=== PATIENT | female | born 2000 | race African-American/Black ===

== ENCOUNTER 2020-08-14 09:38 | Emergency (ER) | payer BC ==
[~2020-08-14] VITALS: Ht 167.6 cm; Wt 117.9 kg
--- NOTE | 2020-08-14 10:31 | Emergency Department Note ---
History of Present Illnes History of Present Illness Chief Complaint: Respiratory History of Present Illness This is a 20 year old female .Chief Complaint Comment PATIENT IN FROM HOME WITH COMPLAINTS OF COUGH AND CONGESTION X 2 DAYS; RUNNY NOSE AND CONGESTION NOTED IN TRIAGE. PATIENT APPEARS IN NO DISTRESS, AFEBRILE, O2 SATS 100% ON ROOM AIR, ALERT AND ORIENTED, RESP EVEN AND NONLABORED Historian: Patient Arrival Mode: Car Onset (how long ago): day(s) (2) Location: COUGH Quality: DULL Radiation: Reports non-radiation, Reports back, Reports neck, Reports extremity, Reports abdomen, Reports periumbilical, Reports flank, Reports proximal, Reports distal, Reports other Severity: mild Onset quality: gradual Duration (how long): day(s) (2) Timing of current episode: intermittent Progression: waxing and waning Chronicity: new Context: Denies recent illness, Denies recent surgery, Denies recent immobil ization, Denies recent travel, Denies trauma/injury, Denies new medications, Denies hx of DVT/PE, Denies non-compliance w/ medications, Denies other Relieving factors: none Exacerbating factors: none Associated symptoms: Reports cough Treatments prior to arrival: none Past Medical/Family History Physician Review I have reviewed the patient's past medical and family history. Any updates have been documented here. Past Medical History Recent Fever: No Clinical Suspicion of Infectio: No New/Unexplained Change in Ment: No Past Medical History: Depression Other Medical History: ADHD Depression Past Surgical History: None Social History Smoking Cessation: Never Smoker Alcohol Use: None Physically hurt or threatened: No Other Last Tetanus: UTD Review of Systems Review of Systems Constitutional: Reports no symptoms EENTM: Reports no symptoms Cardiovascular: Reports no symptoms Respiratory: Reports as per HPI Gastrointestinal: Reports no symptoms Genitourinary: Reports no symptoms Musculoskeletal: Reports no symptoms Integumentary: Reports no symptoms Neurological: Reports no symptoms Psychological: Reports no symptoms Endocrine: Reports no symptoms Hematological/Lymphatic: Reports no symptoms Physical Exam Related Data Allergies: Coded Allergies: ibuprofen (Verified Allergy, Unknown, 08/14/20) Triage Vital Signs Vital Signs Date Time Temp Pulse Resp B/P (MAP) Pulse Ox O2 Delivery O2 Flow Rate FiO2 08/14/20 09:46 97.6 49 20 146/75 100 Room Air Vital signs reviewed: Yes Physical Exam CONSTITUTIONAL Constitutional: Present well-developed, Present well-nourished HENT HENT: Present normocephalic, Present atraumatic, Present oropharynx clear/moist, Present nose normal HENT L/R: Present left ext ear normal, Present right ext ear normal EYES Eyes: Reports PERRL, Reports conjunctivae normal NECK Neck: Present ROM normal PULMONARY Pulmonary: Present effort normal, Present rhonchi CARDIOVASCULAR Cardiovascular: Present regular rhythm, Present heart sounds normal, Present capillary refill normal, Present normal rate; Absent irregular rhythm, Absent intact distal pulses, Absent tachycardia, Ab sent bradycardia, Absent murmur, Absent gallop, Absent friction rub, Absent palpable pulses, Absent strong pulses, Absent weak pulses, Absent LLE edema, Absent RLE edema, Absent other GASTROINTESTINAL Abdominal: Present soft, Present nontender, Present bowel sounds normal; Absent distension, Absent tender, Absent guarding, Absent mass, Absent rebound, Absent hernia, Absent left CVA tenderness, Absent right CVA tenderness, Absent other GENITOURINARY Genitourinary: Present exam deferred SKIN Skin: Present warm, Present dry; Absent erythema, Absent pale, Absent rash, Absent jaundiced, Absent bruising, Absent lesion, Absent other MUSCULOSKELETAL Musculoskeletal: Present ROM normal; Absent edema, Absent deformity, Absent tenderness, Absent swelling, Absent other NEUROLOGICAL Neurological: Present alert, Present oriented x 3, Present no gross motor or sensory deficits PSYCHOLOGICAL Psychological: Present mood/affect normal, Present judgement normal Assessment & Plan Medical Decision Making MDM BRONCHITIS URI Reassessment Reassessment SAME Assessment & Plan Final Impression: (1) Acute bronchitis Depart Disposition: HOME, SELF-CARE Last Vital Signs Date Time Temp Pulse Resp B/P (MAP) Pulse Ox O2 Delivery O2 Flow Rate FiO2 08/14/20 09:46 97.6 49 20 146/75 100 Room Air Home Meds Unable to Obtain Active Prescriptions or Reported Meds DEBO GARAY MD Aug 14, 2020 10:31
[2020-08-14] MEDS ORDERED: KEFLEX500 MG PO (10:32)
--- OUTSIDE RECORDS SUMMARY | 2020-08-14 10:35 | XMS REPORT | Continuity of Care Document ---
Author Author [facility] t Organization [facility] Address [address] [place] [id number] Phone Unavailable Care Team Providers Care Fingernail Sculptor Name Role Phone Rosana PÉREZ Attphys Unavailable Problems This patient has no known problems. Allergies, Adverse Reactions, Alerts This patient has no known allergies or adverse reactions. Medications This patient has no known medications. Procedures This patient has no known procedures. Results Test Description Test Time Test Comments Results Result Comments Source US GALLBLADDER [place] [address] Patient Name: JEN CHAMBERLAIN MR #: [id number] : 2000 Age/Sex: 17/F Req #: [id number] Adm Physician: Ordered by: KYM PÉREZ MD Report #: [id number] Location: ER Room/Bed: Procedure: [id number] US/US GALLBLADDER Exam Date: 08/28/17 Exam Time: 1240 REPORT STATUS: Signed PROCEDURE: US GALLBLADDER COMPARISON: None. INDICATIONS: ABDOMINAL PAIN TECHNIQUE: Crowley-scale and color doppler transverse and longitudinal images of the right upper quadrant of the abdomen were obtained. FINDINGS: Liver: Measures 18 cm in right mid-clavicular line. Normal echogenicity. No masses. Main portal vein: 0.6 cm with hepatopetal flow Gallbladder: Present. No evidence of gallstone, gallbladder wall thickening, or pericholecystic fluid Common Bile Duct: 0.4 cm Sonographic Tierney's sign: Negative Right kidney: 9.7 cm. Normal echogenicity. No solid masses or hydronephrosis. Pancreas: The visualized portions are unremarkable. Inferior vena cava: Patent Aorta: Within normal limits Ascites: None in the right upper quadrant of the abdomen. CONCLUSION: Top normal size of the liver with normal echotexture. Normal gallbladder and biliary tree. No sonographic abnormalities to explain abdominal pain. Dictated by: Virgen Calvo M.D. on 08/28/2017 at 13:21 Electronically approved by: Virgen Calvo M.D. on 08/28/2017 at 13:21 Dictated By: VIRGEN CALVO MD [id number] Transcribed By: RAMIREZ on 08/28/17 1321 COPY TO: KYM PÉREZ MD
== END 2020-08-14 10:44 | disposition home or self-care (01) ==
LOC: ER 10:32
DX: J20.9 Acute bronchitis, unspecified (principal); R05 Cough; F32.9 Major depressive disorder, single episode, unspecified; F90.9 Attention-deficit hyperactivity disorder, unspecified type
CPT/HCPCS: 99283

== ENCOUNTER 2020-09-09 13:26 | Emergency (ER) | payer BC ==
[~2020-09-09] VITALS: Ht 167.6 cm; Wt 117.9 kg
[~2020-09-09 13:26] MED LIST: KEFLEX500 MG PO
[2020-09-09] MEDS ORDERED: SODIUM CHLORIDE 0.9% 1000ML 1,000 ML IV STA (13:40)
[2020-09-09 13:57] LABS: BASOPHILS % 0.4 % (0.0-1.0); EOSINOPHILS # (AUTO) 0.1 (0.0-0.4); EOSINOPHILS % 1.2 % (0.0-6.0); HEMATOCRIT 37.6 % (34.2-44.1); HEMOGLOBIN 11.6 g/dL (12.0-16.0); LYMPHOCYTES # (AUTO) 3.4 (1.0-3.2); LYMPHOCYTES % 30.6 % (18.0-39.1); MEAN CORPUSCULAR HEMOGLOBIN 24.3 pg (28-32); MEAN CORPUSCULAR HGB CONC 30.9 g/dL (31-35); MEAN CORPUSCULAR VOLUME 78.8 fL (81-99); MONOCYTES # (AUTO) 0.4 (0.2-0.8); MONOCYTES % 3.5 % (4.4-11.3); NEUTROPHILS # (AUTO) 7.2 (2.1-6.9); NEUTROPHILS % 63.9 % (38.7-80.0); PLATELET COUNT 375 x10e3/uL (140-360); RED BLOOD COUNT 4.77 x10e6/uL (3.6-5.1); RED CELL DISTRIBUTION WIDTH 15.7 % (11.7-14.4)
[2020-09-09] MEDS ORDERED: ONDANSETRON HCL INJ 2MG/ML 2ML 2 MG/ML VIAL IV NR (14:00)
[2020-09-09] MEDS ORDERED: PANTOPRAZOLE 40 MG 10ML VIAL IV NR (14:00)
[2020-09-09 14:01] LABS: BILIRUBIN,URINE NEGATIVE (NEGATIVE); CLARITY,URINE HAZY (CLEAR); COLOR,URINE YELLOW (YELLOW); KETONES,URINE NEGATIVE (NEGATIVE); LEUKOCYTE ESTERASE ,URINE NEGATIVE (NEGATIVE); NITRITE,URINE NEGATIVE (NEGATIVE); PROTEIN,URINE DIPSTICK NEGATIVE (NEGATIVE); URINE UROBILINOGEN 0.2 mg/dL (0.2 - 1)
[2020-09-09 14:02] LABS: PREGNANCY TEST, URINE NEGATIVE (NEGATIVE)
[2020-09-09 14:11] LABS: BACTERIA,URINE FEW /HPF; EPITHELIAL CELLS,URINE FEW /LPF; MUCUS,URINE FEW (RARE); WBC,URINE (MAN) 0-5 /HPF (0-5)
[2020-09-09 14:18] LABS: ALANINE AMINOTRANSFERASE 38 IU/L (0-55); ALBUMIN 3.6 g/dL (3.5-5.0); ALBUMIN/GLOBULIN RATIO 0.9 (0.8-2.0); ALKALINE PHOSPHATASE 61 IU/L (40-150); ANION GAP 13.5 mmol/L (8-16); BLOOD UREA NITROGEN 9 mg/dL (7-26); BUN/CREATININE RATIO 13 (6-25); CALCIUM 9.2 mg/dL (8.4-10.2); CARBON DIOXIDE 21 mmol/L (22-29); CHLORIDE 108 mmol/L (98-107); CREATININE, SERUM 0.72 mg/dL (0.57-1.11); EST GLOMERULAR FILTRATION RATE > 60 ML/MIN (60-); GLUCOSE 127 mg/dL (74-118); POTASSIUM 3.5 mmol/L (3.5-5.1); SODIUM 139 mmol/L (136-145)
--- NOTE | 2020-09-09 14:30 | Emergency Department Note ---
History of Present Illnes History of Present Illness Chief Complaint: Abdominal Complaints History of Present Illness This is a 20 year old female YESTERDAY VOMITED X 2. TODAY AT 11AM BEGAN HAVING INTERMITTENT, STABBING LOWER QUADRANT SHARP PAIN. DENIES ANY DIARRHEA. GOOEY CLEAR COMING FROM RECTUM. DENIES ANY RECTAL INTERCOURSE. DENIES ANY DIZZINESS. LMP- STATES SHE HAS BEEN ON HER CYCLE FOR 66 DAYS. USING 3-4/PADS PER DAY. LITE RED BLOOD. WAS ON DEPO CONTROL, RECENTLY SWITCHED TO ORAL CONTRACEPTIVES Historian: Patient Arrival Mode: Car Additional Treatment SMELTER CHARGER: NONE Cattle Broker Required: No Onset (how long ago): day(s) (66 days) Location: vaginal Quality: bleeding Radiation: Reports non-radiation Severity: moderate Onset quality: gradual Duration (how long): week(s) Timing of current episode: constant Progression: waxing and waning Chronicity: new Context: Denies recent illness Relieving factors: none Exacerbating factors: none Associated symptoms: Reports denies other symptoms Past Medical/Family History Physician Review I have reviewed the patient's past medical and family history. Any updates have been documented here. Past Medical History Recent Fever: No Clinical Suspicion of Infectio: No New/Unexplained Change in Ment: No Past Medical History: Depression Other Medical History: ADHD POLYCYSTIC OVARIES Past Surgical History: None Social History Smoking Cessation: Never Smoker Counseling Performed: No Alcohol Use: None Any Illegal Drug Use: No TB Exposure/Symptoms: No Physically hurt or threatened: No Family History Family history of heart diseas: No Other Last Tetanus: UTD Any Pre-Existing Lines (PICC,: No Review of Systems Review of Systems Constitutional: Reports no symptoms EENTM: Reports no symptoms Cardiovascular: Reports no symptoms Respiratory: Reports no symptoms Gastrointestinal: Reports as per HPI, Reports abdominal pain, Reports nausea, Reports vomiting Genitourinary: Reports as per HPI Musculoskeletal: Reports no symptoms Integumentary: Reports no symptoms Neurological: Reports no symptoms Psychological: Reports no symptoms Endocrine: Reports no symptoms Hematological/Lymphatic: Reports no symptoms Physical Exam Related Data Allergies: Coded Allergies: ibuprofen (Verified Allergy, Unknown, 08/14/20) Triage Vital Signs Vital Signs Date Time Temp Pulse Resp B/P (MAP) Pulse Ox O2 Delivery O2 Flow Rate FiO2 09/09/20 13:31 98.6 88 18 156/85 100 Vital signs reviewed: Yes Physical Exam CONSTITUTIONAL Constitutional: Present well-developed, Present well-nourished HENT HENT: Present normocephalic, Present atraumatic, Present oropharynx clear/moist, Present nose normal HENT L/R: Present left ext ear normal, Present right ext ear normal EYES Eyes: Reports PERRL, Reports conjunctivae normal NECK Neck: Present ROM normal PULMONARY Pulmonary: Present effort normal, Present breath sounds normal CARDIOVASCULAR Cardiovascular: Present regular rhythm, Present heart sounds normal, Present capillary refill normal, Present normal rate GASTROINTESTINAL Abdominal: Present soft, Present nontender, Present bowel sounds normal GENITOURINARY Genitourinary: Present exam deferred SKIN Skin: Present warm, Present dry MUSCULOSKELETAL Musculoskeletal: Present ROM normal NEUROLOGICAL Neurological: Present alert, Present oriented x 3, Present no gross motor or sensory deficits PSYCHOLOGICAL Psychological: Present mood/affect normal, Present judgement normal Results Laboratory Result Diagram: 09/09/20 1343 09/09/20 1343 Laboratory Laboratory Tests Test 09/09/20 13:43 White Blood Count 11.25 x10e3/uL (4.8-10.8) Red Blood Count 4.77 x10e6/uL (3.6-5.1) Hemoglobin 11.6 g/dL (12.0-16.0) Hematocrit 37.6 % (34.2-44.1) Mean Corpuscular Volume 78.8 fL (81-99) Mean Corpuscular Hemoglobin 24.3 pg (28-32) Mean Corpuscular Hemoglobin Concent 30.9 g/dL (31-35) Red Cell Distribution Width 15.7 % (11.7-14.4) Platelet Count 375 x10e3/uL (140-360) Neutrophils (%) (Auto) 63.9 % (38.7-80.0) Lymphocytes (%) (Auto) 30.6 % (18.0-39.1) Monocytes (%) (Auto) 3.5 % (4.4-11.3) Eosinophils (%) (Auto) 1.2 % (0.0-6.0) Basophils (%) (Auto) 0.4 % (0.0-1.0) Neutrophils # (Auto) 7.2 (2.1-6.9) Lymphocytes # (Auto) 3.4 (1.0-3.2) Monocytes # (Auto) 0.4 (0.2-0.8) Eosinophils # (Auto) 0.1 (0.0-0.4) Basophils # (Auto) 0.0 (0.0-0.1) Absolute Immature Granulocyte (auto 0.04 x10e3/uL (0-0.1) Urine Color Yellow (YELLOW) Urine Clarity Hazy (CLEAR) Urine pH 5.5 (5 - 7) Urine Specific [place] >=1.030 (1.010-1.025) Urine Protein Negative (NEGATIVE) Urine Glucose (UA) Negative (NEGATIVE) Urine Ketones Negative (NEGATIVE) Urine Blood Trace (NEGATIVE) Urine Nitrite Negative (NEGATIVE) Urine Bilirubin Negative (NEGATIVE) Urine Urobilinogen 0.2 mg/dL (0.2 - 1) Urine Leukocyte Esterase Negative (NEGATIVE) Urine RBC 6-10 /HPF (0-5) Urine WBC 0-5 /HPF (0-5) Urine Epithelial Cells Few /LPF (NONE) Urine Bacteria Few /HPF (NONE) Urine Mucus Few (RARE) Urine Test Negative (NEGATIVE) Sodium Level 139 mmol/L (136-145) Potassium Level 3.5 mmol/L (3.5-5.1) Chloride Level 108 mmol/L (98-107) Carbon Dioxide Level 21 mmol/L (22-29) Anion Gap 13.5 mmol/L (8-16) Blood Urea Nitrogen 9 mg/dL (7-26) Creatinine 0.72 mg/dL (0.57-1.11) Estimat Glomerular Filtration Rate > 60 ML/MIN (60-) BUN/Creatinine Ratio 13 (6-25) Glucose Level 127 mg/dL (74-118) Calcium Level 9.2 mg/dL (8.4-10.2) Total Bilirubin 0.2 mg/dL (0.2-1.2) Aspartate Amino Transf (AST/SGOT) 23 IU/L (5-34) Alanine Aminotransferase (ALT/SGPT) 38 IU/L (0-55) Alkaline Phosphatase 61 IU/L (40-150) Total Protein 7.7 g/dL (6.5-8.1) Albumin 3.6 g/dL (3.5-5.0) Globulin 4.1 g/dL (2.3-3.5) Albumin/Globulin Ratio 0.9 (0.8-2.0) Lab results reviewed: Yes Imaging Imaging results reviewed: Yes Impressions EXAM: Transabdominal and Transvaginal Pelvic Ultrasound INDICATION: LOWER ABD PAIN, H/O PCOS. COMPARISON: None TECHNIQUE: Grayscale transverse and sagittal transabdominal and transvaginal images were obtained of the pelvis. Transvaginal imaging was medically necessary to better evaluate the endometrium and the adnexa. CLINICAL HISTORY: 20 year old A0; last menstrual period: June 29, 2020. FINDINGS: Uterus Orientation: Normal Size: 6.0 x 3.1 x 4.0 cm, Normal Mass: None Cervix: Normal Endometrium: Thickness: 0.6 cm, Normal. Appearance: Homogeneous echotexture without focal thickening. Right ovary: Size: 2.0 x 2.2 x 2.1 cm Mass/Cyst: None Left ovary: Size: 1.8 x 1.6 x 2.1 cm Mass/Cyst: None Adnexa: Normal Cul-de-sac: Small amount of free fluid, likely physiologic. IMPRESSION: Normal pelvic ultrasound exam. Signed by: Adriana Loya MD on 09/09/2020 3:59 PM Assessment & Plan Medical Decision Making MDM vag bleeding X months, abd pain - likely hormonal with h/o PCOS - check CBC, chem, UA, preg, pelvic US - eval anemia, , large ovarian cyst, uterine fibroids Reassessment Reassessment DC Home, continue oral contraceptives, F/U Cold Working Supervisor PCP call Friday Assessment & Plan Final Impression: (1) DUB (dysfunctional uterine bleeding) Depart Disposition: HOME, SELF-CARE Last Vital Signs Date Time Temp Pulse Resp B/P (MAP) Pulse Ox O2 Delivery O2 Flow Rate FiO2 09/09/20 13:31 98.6 88 18 156/85 100 Home Meds Active Scripts Cephalexin Monohydrate (KEFLEX) 500 Mg Capsule, 1 TAB PO TID, #21 Prov:DEBO GARAY MD 08/14/20 Medications in the ED Sodium Chloride 1,000 ml @ 0 mls/hr Q0M STAT IV Last administered on 09/09/20at 13:55; Admin Dose 250 MLS/HR; Start 09/09/20 at 13:40; Stop 09/09/20 at 13:44; Status DC Pantoprazole Sodium 40 mg ONCE IV Last administered on 09/09/20at 14:10; Admin Dose 40 MG; Start 09/09/20 at 14:00; Stop 09/09/20 at 15:59 Ondansetron HCl 4 mg ONCE IV Last administered on 09/09/20at 14:10; Admin Dose 4 MG; Start 09/09/20 at 14:00; Stop 09/09/20 at 15:59 YAQUELIN LOBO MD Sep 09, 2020 14:30
--- NOTE | 2020-09-09 16:02 | Diagnostic Imaging Report ---
EXAM: Transabdominal and Transvaginal Pelvic Ultrasound INDICATION: LOWER ABD PAIN, H/O PCOS. COMPARISON: None TECHNIQUE: Grayscale transverse and sagittal transabdominal and transvaginal images were obtained of the pelvis. Transvaginal imaging was medically necessary to better evaluate the endometrium and the adnexa. CLINICAL HISTORY: 20 year old A0; last menstrual period: June 29, 2020. FINDINGS: Uterus Orientation: Normal Size: 6.0 x 3.1 x 4.0 cm, Normal Mass: None Cervix: Normal Endometrium: Thickness: 0.6 cm, Normal. Appearance: Homogeneous echotexture without focal thickening. Right ovary: Size: 2.0 x 2.2 x 2.1 cm Mass/Cyst: None Left ovary: Size: 1.8 x 1.6 x 2.1 cm Mass/Cyst: None Adnexa: Normal Cul-de-sac: Small amount of free fluid, likely physiologic. IMPRESSION: Normal pelvic ultrasound exam. Signed by: Adriana oLya MD on 09/09/2020 3:59 PM
[2020-09-09 16:12] VITALS: BP 135/72
--- OUTSIDE RECORDS SUMMARY | 2020-09-14 18:21 | XMS REPORT | Continuity of Care Document ---
Author Author [facility] t Organization [facility] Address [address] [place] [address] Phone Unavailable Care Team Providers Care Residential Sales Rep Name Role Phone NONSTAFF PCP Unavailable Jody LOBO Attphys Unavailable Rosana PÉREZ Attphys Unavailable Payers Payer Name Policy Type Policy Number Effective Date Expiration Date [employer] [id number] 1999 00:00:0 0 [facility] Problems Condition Name Condition Details Condition Category Status Onset Date Resolution Date Last Treatment Date Treating Clinician Comments Source Abdominal pain Problem Active C [facility] Acute bronchitis Problem Active [facility] Allergies, Adverse Reactions, Alerts Allergy Name Allergy Type Status Severity Reaction(s) Onset Date Inacti ve Date Treating Clinician Comments Source Ibuprofen Allergy to substance Active 2020-08-14 00:00:00 [facility] Social History Social Habit Start Date Stop Date Quantity Comments Source Sex Assigned At 2000 00:00:00 2000 00:00:00 Female [facility] Medications Ordered Medication Name Filled Medication Name Start Date Stop Da te Current Medication? Ordering Clinician Indication Dosage Frequency Signature (SIG) Comments Components Source Cephalexin Monohydrate (Keflex) 500 Mg CAPSULE Cephale keira Monohydrate (Keflex) 500 Mg CAPSULE 2020-08-14 10:32:00 Yes 1 Three Ze es A Day [facility] Vital Signs Vital Name Observation Time Observation Value Comments Source Weight 2020-08-14 09:46:00 260 [lb_av] [facility] BMI (Body Mass Index) 2020-08-14 09:46:00 42.0 kg/m2 [facility] Procedures This patient has no known procedures. Plan of Care Planned Activity Planned Date Details Comments Source Instructions Bronchitis (Acute) - Adult C [facility] Instructions Upper Respiratory Infection - Adult [facility] Encounters Start Date/Time End Date/Time Encounter Type Admission Type [facility] Care Department Encounter ID Source 2020-08-14 10:32:00 2020-08-14 10:44:00 Departed Emergency Room [id number] [facility] Results Test Description Test Time Test Comments Results Result Comments Source US PELVIS COMPLETE NON OB 2020-09-09 15:56[facility] 2000 Sex: F [facility] [address] [place] [address] Patient Name: JEN CHAMBERLAIN MR #: [id number] : 2000 Age/Sex: 20/F Req #: [id number] Adm Physician: Ordered by: YAQUELIN LOBO MD Report #: [id number] Location: ER Room/Bed: Procedure: [id number] US/US PELVIS COMPLETE NON OB Exam Date: 09/09/20 Exam Time: 1502 REPORT STATUS: Signed EXAM: Transabdominal and Transvaginal Pelvic Ultrasound INDICATION: LOWER ABD PAIN, H/O PCOS. COMPARISON: None TECHNIQUE: Grayscale transverse and sagittal transabdominal and transvaginal images were obtained of the pelvis. Transvaginal imaging was medically necessary to better evaluate the endometrium and the adnexa. CLINICAL HISTORY: 20 year old A0; last menstrual period: June 29, 2020. FINDINGS: Uterus Orientation: Normal Size: 6.0 x 3.1 x 4.0 cm, Normal Mass: None Cervix: Normal Endometrium: Thickness: 0.6 cm, Normal. Appearance: Homogeneous echotexture without focal thickening. Right ovary: Size: 2.0 x 2.2 x 2.1 cm Mass/Cyst: None Left ovary: Size: 1.8 x 1.6 x 2.1 cm Mass/Cyst: None Adnexa: Normal Cul-de-sac: Small amount of free fluid, likely physiologic. IMPRESSION: Normal pelvic ultrasound exam. Signed by: Angel Uriostegui MD on 09/09/2020 3:59 PM Dictated By: ANGEL URIOSTEGUI MD 58 Transcribed By: LES on 09/09/201558 COPY TO: YAQUELIN LOBO MD [place] [address] Patient Name: JEN CHAMBERLAIN MR #: [id number] : 2000 Age/Sex: 17/F Req #: [id number] Adm Physician: Ordered by: KYM PÉREZ MD Report #: [id number] Location: ER Room/Bed: Procedure: [id number] US/US GALLBLADDER Exam Date: 08/28/17 Exam Time: [...]
== END 2020-09-09 16:21 | disposition home or self-care (01) ==
LOC: ER 13:39
DX: N93.8 Other specified abnormal uterine and vaginal bleeding (principal); F32.9 Major depressive disorder, single episode, unspecified; F90.9 Attention-deficit hyperactivity disorder, unspecified type
CPT/HCPCS: 36415; 76856; 80053; 81001; 81025; 85025; 87086; 99284; C9113; J2405; J7030

== ENCOUNTER → 2021-02-20 | Outpatient (CLI) | payer BC ==
[~2021-02-20] MED LIST changes: +GADOBENATE DIMEGLUMINE 1 ML IV ONE
== END ==
LOC: MRI 13:10
PROVIDERS: ATTEND Pediatrics
DX: R41.89 Other symptoms and signs involving cognitive functions and awareness (principal); F91.9 Conduct disorder, unspecified; Z84.89 Family history of other specified conditions
CPT/HCPCS: 70553; 81025; A9577

== ENCOUNTER → 2021-03-29 | Outpatient (CLI) | payer BC ==
[~2021-03-29] MED LIST changes: -GADOBENATE DIMEGLUMINE 1 ML IV ONE
== END ==
LOC: DX 03-08 10:59
PROVIDERS: ATTEND Pediatrics
DX: R06.83 Snoring (principal); G47.30 Sleep apnea, unspecified; R41.89 Other symptoms and signs involving cognitive functions and awareness; Z84.89 Family history of other specified conditions; Z20.822 Contact with and (suspected) exposure to COVID-19
CPT/HCPCS: 95810; U0002 ×2

== ENCOUNTER → 2021-04-10 | Outpatient (CLI) | payer BC ==
[~2021-04-10] MED LIST changes: +IOPAMIDOL 370 MG/ML 200 ML INFUS..BTL INJ ONE; +SODIUM CHLORIDE 0.9% 100 ML ONE
== END ==
LOC: CT 06:40
PROVIDERS: ATTEND Pediatrics
DX: G43.909 Migraine, unspecified, not intractable, without status migrainosus (principal); Q01.9 Encephalocele, unspecified; G47.30 Sleep apnea, unspecified; R06.83 Snoring; F91.9 Conduct disorder, unspecified; R41.89 Other symptoms and signs involving cognitive functions and awareness; Z84.89 Family history of other specified conditions
CPT/HCPCS: 70496; J7050; Q9967

== ENCOUNTER → 2021-05-24 | Outpatient (CLI) | payer BC ==
[~2021-05-24] MED LIST changes: -IOPAMIDOL 370 MG/ML 200 ML INFUS..BTL INJ ONE; -SODIUM CHLORIDE 0.9% 100 ML ONE
== END ==
LOC: CT 14:33
PROVIDERS: ATTEND Neurological Surgery
DX: I82.90 Acute embolism and thrombosis of unspecified vein (principal)
CPT/HCPCS: 70460

== ENCOUNTER 2024-10-19 05:08 | Emergency (ER) | payer BC, OTHER ==
[~2024-10-19] VITALS: Ht 165.1 cm; Wt 124.7 kg
[~2024-10-19 05:08] MED LIST changes: +CLEOCIN HCL300 MG PO; +FIORICET 50-301 EACH PO
[2024-10-19 05:20] VITALS: TEMP 98.2
[2024-10-19 05:30] LABS: BASOPHILS # (AUTO) 0.1 (0.0-0.1); BASOPHILS % 0.6 % (0.0-1.0); EOSINOPHILS # (AUTO) 0.1 (0.0-0.4); EOSINOPHILS % 0.6 % (0.0-6.0); HEMATOCRIT 45.2 % (34.2-44.1); HEMOGLOBIN 14.6 g/dL (12.0-16.0); LYMPHOCYTES # (AUTO) 3.6 (1.0-3.2); LYMPHOCYTES % 40.5 % (18.0-39.1); MEAN CORPUSCULAR HEMOGLOBIN 27.9 pg (28-32); MEAN CORPUSCULAR HGB CONC 32.3 g/dL (31-35); MEAN CORPUSCULAR VOLUME 86.4 fL (81-99); MONOCYTES # (AUTO) 0.4 (0.2-0.8); MONOCYTES % 4.4 % (4.4-11.3); NEUTROPHILS # (AUTO) 4.8 (2.1-6.9); NEUTROPHILS % 53.6 % (38.7-80.0); PLATELET COUNT 433 x10e3/uL (140-360); RED BLOOD COUNT 5.23 x10e6/uL (3.6-5.1); RED CELL DISTRIBUTION WIDTH 13.1 % (11.7-14.4); WHITE BLOOD COUNT 8.86 x10e3/uL (4.8-10.8)
[2024-10-19] MEDS: MULTIVITAMINS- 12 INJECTION 10 ML, FOLIC ACID MDV 1 MG, THIAMINE HCL INJ 100 MG in SODI... IV ONE (05:31)
[2024-10-19] MEDS: SODIUM CHLORIDE 0.9% 1000ML 1,000 ML IV STA (05:31)
[2024-10-19 05:41] VITALS: PULSE 91; RESP 16; O2SAT 100
[2024-10-19 05:48] LABS: ALANINE AMINOTRANSFERASE 18 IU/L (0-55); ALBUMIN 3.9 g/dL (3.5-5.0); ALBUMIN/GLOBULIN RATIO 0.9 (0.8-2.0); ALKALINE PHOSPHATASE 57 IU/L (40-150); ANION GAP 20.5 mmol/L (8-16); BILIRUBIN,TOTAL 0.3 mg/dL (0.2-1.2); CALCIUM 9.5 mg/dL (8.4-10.2); CARBON DIOXIDE 16 mmol/L (22-29); CHLORIDE 104 mmol/L (98-107); CREATININE, SERUM 0.79 mg/dL (0.57-1.11); EST GLOMERULAR FILTRATION RATE 106 ML/MIN (>=60); GLUCOSE 241 mg/dL (74-118); POTASSIUM 3.5 mmol/L (3.5-5.1); SODIUM 137 mmol/L (136-145); TOTAL PROTEIN 8.3 g/dL (6.5-8.1)
[2024-10-19 05:49] LABS: BUN/CREATININE RATIO 6 (6-25)
[2024-10-19 06:03] LABS: BLOOD UREA NITROGEN < 5 mg/dL (7-26)
[2024-10-19] MEDS ORDERED: IOPAMIDOL 370 MG/ML 100 ML INFUS..BTL INJ ONE (06:10)
[2024-10-19 07:25] LABS: OPIATES SCREEN,URINE NEGATIVE (NEGATIVE)
[2024-10-19 07:26] LABS: PHENCYCLIDINE SCREEN,URINE NEGATIVE (NEGATIVE)
[2024-10-19 07:27] LABS: AMPHETAMINES SCREEN,URINE NEGATIVE (NEGATIVE); BENZODIAZEPINES SCREEN,URINE NEGATIVE (NEGATIVE)
[2024-10-19 07:28] LABS: CANNABINOIDS SCREEN,URINE POSITIVE (NEGATIVE); COCAINE SCREEN,URINE NEGATIVE (NEGATIVE); METHADONE SCREEN, URINE NEGATIVE (NEGATIVE)
== END 2024-10-19 08:37 | disposition home or self-care (01) ==
LOC: ER 05:15
DX: R47.81 Slurred speech (principal); F31.9 Bipolar disorder, unspecified; F41.9 Anxiety disorder, unspecified; F15.10 Other stimulant abuse, uncomplicated; F12.10 Cannabis abuse, uncomplicated; E28.2 Polycystic ovarian syndrome; F90.9 Attention-deficit hyperactivity disorder, unspecified type
CPT/HCPCS: 36415; 70496; 70498; 80053; 80307; 80320; 84702; 85025; 99284; J3411; J7030; Q9967